=== PATIENT | male | born 1985 | race African-American/Black ===

== ENCOUNTER 2018-12-26 00:55 | Emergency (ER) | payer MEDICAID ==
[~2018-12-26] VITALS: Ht 175.3 cm; Wt 68.0 kg
[2018-12-26] MEDS ORDERED: HYDROcodone-ACET 10/325MG TAB PO ONE (03:30)
[2018-12-26] MEDS ORDERED: TETANUS-DIPTH-ACEL PERTUSSIS 0.5ML SYRG IM ONE (03:30)
[2018-12-26 07:15] VITALS: BP 136/82
[2018-12-26] MEDS ORDERED: LIDOCAINE 2%HCL (LOCAL ANESTH.) INJ 20ML MDV ID ONE (07:15)
[2018-12-26] MEDS ORDERED: NEOMYCIN-BACITRACIN-POLYM UNITDOSE PKG TOP OINT TOP ONE (07:15)
[2018-12-26] MEDS: LIDOCAINE 1% HCL (LOCAL ANESTH.) INJ 20ML MDV ONE ×2 (07:17→07:23)
[2018-12-26] MEDS ORDERED: LIDOCAINE 2% (LOCAL ANESTH.) PF 5ml SDV ONE (07:45)
== END 2018-12-26 08:53 | disposition home or self-care (01) ==
LOC: ER 01:01
DX: S41.112A Laceration without foreign body of left upper arm, initial encounter (principal); I10 Essential (primary) hypertension; Y08.89XA Assault by other specified means, initial encounter; Y93.89 Activity, other specified; Y99.8 Other external cause status; Y92.89 Other specified places as the place of occurrence of the external cause
CPT/HCPCS: 12044; 90471; 90715; 99284; J2001; 12004